=== PATIENT | male | born 1955 | race Caucasian/White ===

== ENCOUNTER 2020-06-16 21:55 | Emergency (ER) | payer OTHER ==
[~2020-06-16] VITALS: Ht 175.3 cm; Wt 108.9 kg
[2020-06-16 21:55] VITALS: BP 131/70
--- NOTE | 2020-06-16 22:00 | NUR ---
PT CAME TO THE ER C/O UPPER BACK OPEN WOUND W/ ABSCESS. PT AAOX4, VSS, NO ACUTE DISTRESS NOTED. PT CONNECTED TO THE MONITOR AND POX
[2020-06-16] MEDS ORDERED: LIDOCAINE 1% INJ 50 ML MDV IJ ONE (22:32)
--- NOTE | 2020-06-16 22:36 | NUR ---
DR SORENSEN AT BEDSIDE
--- NOTE | 2020-06-16 22:54 | NUR ---
Patient discharged to home in stable condition. Written and verbal after care instructions given. Patient verbalizes understanding of instruction.
== END 2020-06-17 00:53 | disposition home or self-care (01) ==
LOC: ER 21:55
DX: L02.212 Cutaneous abscess of back [any part, except buttock and flank] (principal)
CPT/HCPCS: 10060; 99283; A6407; J3490